=== PATIENT | female | born 1990 | race Caucasian/White ===

== ENCOUNTER 2018-08-23 16:30 | Emergency (ER) | payer MEDICAID, OTHER ==
[~2018-08-23] VITALS: Ht 152.4 cm; Wt 69.0 kg
[2018-08-23] MEDS ORDERED: BACITRACIN ZINC OINT UDPKT TOP ONE (21:00)
[2018-08-23 21:05] VITALS: BP 126/79
== END 2018-08-23 21:06 | disposition home or self-care (01) ==
LOC: ER 16:30
DX: T23.201A Burn of second degree of right hand, unspecified site, initial encounter (principal); T31.0 Burns involving less than 10% of body surface; X19.XXXA Contact with other heat and hot substances, initial encounter; Y93.G3 Activity, cooking and baking; Y92.89 Other specified places as the place of occurrence of the external cause; Y99.8 Other external cause status
CPT/HCPCS: 99283